=== PATIENT | male | born 1995 | race American Indian/Alaskan Native ===

== ENCOUNTER 2018-02-05 00:34 | Emergency (ER) | payer SELFPAY ==
[2018-02-05] MEDS ORDERED: ADRENALIN ONE (00:35)
[2018-02-05] MEDS ORDERED: CALCIUM CHLORIDE IV ONE (00:35)
[2018-02-05] MEDS ORDERED: CORDARONE IV ONE (00:35)
[2018-02-05] MEDS ORDERED: SODIUM BICARBONATE IV ONE (00:35)
[2018-02-05] MEDS ORDERED: LEVOPHED DRIP 4 MG/NS 250 ML 4 MG/250 ML BAG IV ONE (01:07)
--- NOTE | 2018-02-05 01:51 | Emergency Department Report ---
ED CPR HPI - General Chief Complaint: Cardiac Arrest/CPR Stated Complaint: CARDIAC ARREST Time Seen by Provider: 02/05/18 00:51 Source: EMS Mode of arrival: Stretcher Limitations: Other - History of Present Illness Initial Comments: 22-year-old male presents to the emergency department via EMS in cardiac arrest after the patient was found hanged. The story I received from EMS was that the patient was found by some friends hanging from a pipe with something that appears like a scarf around his neck. The friends allegedly cut him down from there and called 911. The police department were first on scene and began doing CPR. The fire department arrived and continued CPR with ACLS protocol. The patient was intubated with an 8.0 ET tube. Prior to arrival here at [facility], the patient received 5 doses of epinephrine, one half amp of sodium bicarbonate and 2 mg of Narcan. They said that they had a return of spontaneous circulation in route for a total of about 2 minutes. Otherwise the patient was PEA or asystole the entire time. It is unknown how long the patient was hanging. Apparently the original call to 911 was around 11:45 PM. The patient arrived here around 0038 where we continued ACLS protocol. - Related Data Allergies Allergy/AdvReac Type Severity Reaction Status Date / Time Unable to Assess Allergy Verified 02/05/18 01:06 ED Review of Systems ROS: Stated complaint: CARDIAC ARREST Other details as noted in HPI Comment: Unobtainable due to pts medical conditions ED Past Medical Hx - Past Medical History Previous Medical History?: No - Surgical History Past Surgical History?: No - Social History Smoking Status: Unknown if ever smoked Substance Use Type: Marijuana ED Physical Exam - General Limitations: Other - Other Other exam information: GENERAL: Patient is ill-appearing and unresponsive. HENT: Normocephalic. Atraumatic. Patient has moist mucous membranes. EYES: Pupils are fixed and dilated. NECK: Trachea appears midline. CHEST/LUNGS: There are no spontaneous respirations. HEART/CARDIOVASCULAR: There are no spontaneous heart sounds. ABDOMEN: Abdomen is soft. There is no abdominal distention. SKIN: There is some darkening of the skin around the neck consistent with ligature mora. Skin is otherwise cool but dry. NEURO: Unresponsive. Does not withdraw to painful stimuli. Does not follow any commands. MUSCULOSKELETAL: There is no obvious deformity. There is no evidence of acute injury. No palpable femoral or radial pulses. ED Course Vital Signs 02/05/18 02/05/18 02/05/18 00:40 00:45 01:01 Pulse Rate 138 H 265 H 140 H Respiratory 72 H 20 Rate Blood Pressure 113/84 O2 Sat by Pulse 62 L 72 L 77 L Oximetry 02/05/18 02/05/18 02/05/18 01:29 01:31 01:45 Pulse Rate Respiratory 21 14 0 L Rate Blood Pressure O2 Sat by Pulse Oximetry ED Medical Decision Making - Medical Decision Making The patient presented pulseless in PEA. He had already received 5 rounds of epinephrine, one half amp of sodium bicarbonate and some Narcan with only a very short return of spontaneous circulation before he once again lost his pulse. We continued chest compressions immediately upon arrival. The patient had an ET tube in place and there was bilateral breath sounds heard with bag valve ventilation. He was placed on the monitor and appeared to be in pulseless electrical activity. We did multiple rounds of ACLS protocol including epinephrine, sodium bicarbonate and we had a return of spontaneous circulation. However during this time the patient had a low blood pressure, started having some tachycardia in the morphology on the monitor appeared consistent with ventricular fibrillation. The patient received 2 different shocks, with the first one at 300 J and the second at 200 J. This but the patient back into a sinus appearing rhythm. Normal was given for magnesium and amiodarone to be started. When the patient had the low blood pressure, the order was given to start dopamine and an epinephrine drip was ordered from pharmacy. However shortly after return of spontaneous circulation, the patient did then bradycardia down and once again appeared to lose his pulse. ACLS protocol was restarted. The patient did have one more very brief episode with return of spontaneous circulation before loosing his pulse it again. On the rhythm He was in pulseless electrical activity and eventually the patient became asystolic. I took a bedside ultrasound and the patient's heart had a little bit of flutter but otherwise no organized rhythm or squeeze. Overall the patient had received CPR and ACLS protocol for over one hour. He received around 10 rounds of epinephrine, 2 A of sodium bicarbonate, amiodarone, magnesium, calcium, IV fluid resuscitation and pressors. His pupils are fixed and dilated. At this time time of was called at 1:09 AM. Portions of this chart were completed using dictation software and therefore there may be some dictation errors within this note. Critical Care Time: Yes Critical care time in (mins) excluding proc time.: 31 Critical care attestation.: If time is entered above; I have spent that time in minutes in the direct care of this critically ill patient, excluding procedure time. Critical care time was spent on this patient during his initial evaluation, multiple re-evaluations, supervision of ACLS protocol. Critical Care Time: 31 minutes ED Disposition Clinical Impression: Cardiac arrest Hanging Qualifiers: Encounter type: initial encounter Qualified Code(s): T71.164A - Asphyxiation due to hanging, undetermined, initial encounter Disposition: DC-20 Is pt being admited?: No Referrals: PRIMARY CARE, [Primary Care Provider] - 3-5 Days Time of Disposition: 01:15
[2018-02-05 02:19] VITALS: BP 113/84
== END 2018-02-05 03:55 ==
LOC: ED 00:34
DX: T71.164A Asphyxiation due to hanging, undetermined, initial encounter (principal); I46.9 Cardiac arrest, cause unspecified; F12.10 Cannabis abuse, uncomplicated; X58.XXXA Exposure to other specified factors, initial encounter; Y93.89 Activity, other specified; Y92.89 Other specified places as the place of occurrence of the external cause; Y99.8 Other external cause status
CPT/HCPCS: 31500; 92950; 99291; J0171; J0282